=== PATIENT | female | born 1945 | race Caucasian/White ===

== ENCOUNTER 2018-02-15 17:33 | Emergency (ER) | payer MEDICARE, MEDICAID ==
[~2018-02-15] VITALS: Ht 160 cm; Wt 109.3 kg
[~2018-02-15 17:33] MED LIST: AMLO2.5T PO; ATEN25TA2 PO; CALC0.5S6 PO; CLIN300C2 PO; FOLI1TAB19 PO; LORA-476 PO; OXYC1TAB PO; VAN1PM IV; [UNRECOGNIZED DRUG - CODE] PO
[2018-02-15 17:43] VITALS: BP 114/64
[2018-02-15] MEDS: KETOROLAC 60 MG/2 ML VIAL IM ONE (19:06)
[2018-02-15 19:32] VITALS: BP 12/89
== END 2018-02-15 19:30 | disposition home or self-care (01) ==
LOC: MED 17:33
DX: B02.9 Zoster without complications (principal); B02.29 Other postherpetic nervous system involvement; I10 Essential (primary) hypertension; J45.909 Unspecified asthma, uncomplicated; M19.90 Unspecified osteoarthritis, unspecified site; I48.91 Unspecified atrial fibrillation; Z96.653 Presence of artificial knee joint, bilateral; Z79.899 Other long term (current) drug therapy; Z88.0 Allergy status to penicillin
CPT/HCPCS: 96372; 99283; J1885

== ENCOUNTER 2018-03-22 16:22 | Emergency (ER) | payer MEDICARE, MEDICAID ==
[~2018-03-22] VITALS: Ht 160 cm; Wt 108.9 kg
[2018-03-22 16:30] VITALS: BP 144/74
--- NOTE | 2018-03-22 16:32 | NUR ---
PT AMBULATED TO ED BED 9, REPORT TO MARTHA KIRKLAND
--- NOTE | 2018-03-22 16:40 | NUR ---
72F BIB SELF WITH C/O 9/10 BUTTOCK AND PERINEAL PAIN D/T "SHINGLES" X 1 WEEK. PT DENIES ANY RECENT FEVERS, N/V/D, OR CP. PT IS AOX4 TO PERSON, PLACE, SITUATION, AND TIME. RR ARE EVEN AND UNLABORED. PT CHANGED IN TO GOWN. AWAITING ER MD GARCIA. PT POSITIONED TO COMFORT. ALL NEEDS MET AT THIS TIME. WILL CONTINUE TO MONITOR.
--- NOTE | 2018-03-22 17:56 | NUR ---
PT WENT TO LOBBY TO WAIT FOR DISCHARGE
[2018-03-22 18:23] VITALS: BP 139/70
--- NOTE | 2018-03-22 18:23 | NUR ---
Patient discharged with v/s stable. Written and verbal after care instructions given and explained. Patient alert, oriented and verbalized understanding of instructions. Ambulatory with steady gait. All questions addressed prior to discharge. ID band removed. Patient advised to follow up with PMD. Rx of pERCOCET 10 given. Patient educated on indication of medication including possible reaction and side effects. Opportunity to ask questions provided and answered.
== END 2018-03-22 18:23 | disposition home or self-care (01) ==
LOC: MED 16:22
DX: B02.9 Zoster without complications (principal); J45.909 Unspecified asthma, uncomplicated; I10 Essential (primary) hypertension; F41.9 Anxiety disorder, unspecified; Z88.0 Allergy status to penicillin; Z79.1 Long term (current) use of non-steroidal anti-inflammatories (NSAID); Z79.899 Other long term (current) drug therapy
CPT/HCPCS: 99283

== ENCOUNTER 2018-09-09 11:48 | Emergency (ER) | payer MEDICAID, MEDICARE ==
[~2018-09-09] VITALS: Ht 160 cm; Wt 87.1 kg
[2018-09-09 11:50] VITALS: BP 168/85
--- NOTE | 2018-09-09 11:56 | NUR ---
PATIENT AMBULATED TO BED 7 AT THIS TIME.
--- NOTE | 2018-09-09 12:08 | NUR ---
73y/f bib self with c/o 8/10 bl lower back pain x yesterday, progressively getting worse. Patient sts she tried heating pad w/o any relief. Patient sts chronic lower back pain. Patient with steady gait with personal walker. Patient denies any recent injury or fall. pt bed down, bedrail up x 1, er md aware of notified of pt status. hx--A. Fib, RA, UTI, Hernaited Disc, HTN rx--metoprolol, diltiazem, gabapentin, fluoxetine, nitrofurantoin , zestril
[2018-09-09] MEDS ORDERED: KETOROLAC 60 MG/2 ML VIAL IM ONE (12:40)
--- NOTE | 2018-09-09 13:02 | NUR ---
notified dr. davidson pt is on xarelto, per dr. davidson, hold toradol.
[2018-09-09] MEDS ORDERED: MORPHINE SULFATE 4 MG/ML SYR IM ONE (13:25)
[2018-09-09 14:13] VITALS: BP 168/85
== END 2018-09-09 14:13 | disposition home or self-care (01) ==
LOC: MED 11:48
DX: M54.5 Low back pain (principal); R30.0 Dysuria; Z88.0 Allergy status to penicillin; J45.909 Unspecified asthma, uncomplicated; I10 Essential (primary) hypertension; Z90.49 Acquired absence of other specified parts of digestive tract; Z90.710 Acquired absence of both cervix and uterus; Z79.899 Other long term (current) drug therapy
CPT/HCPCS: 81002; 81025; 96372; 99283; J1885; J2270

== ENCOUNTER 2019-02-05 12:51 | Emergency (ER) | payer MEDICARE ==
[~2019-02-05] VITALS: Ht 160 cm; Wt 107.0 kg
[2019-02-05 12:59] VITALS: BP 166/78
--- NOTE | 2019-02-05 13:05 | NUR ---
73 Y FEMALE BIB FAMILY C/O BACK PAIN 05/19. PT AMB TO BED WITH WALKER ASSISTANCE. PT OUT OF PAIN MEDS NORCO. STATES SHE CANT SEE HER PCP UNTIL THURSDAY. STATES THE PAIN IS TOO PAINFUL TO WAIT. PT JAVI AT 55. PT [id number]. BED IS DOWN, LOCKED, BED RAIL X 1, ERMD TO SEE PT. MED HX: CHRONIC BACK PAIN
--- NOTE | 2019-02-05 14:04 | NUR ---
DR ESPANA AT BEDSIDE
[2019-02-05] MEDS ORDERED: HYDROcodone/APAP 10/325 MG 1 TAB TAB PO STA (14:19)
--- NOTE | 2019-02-05 14:26 | NUR ---
NORCO ADMINISTERED PO. PAIN 10/10 AT THIS TIME. WILL CONTINUE TO RE-EVALUATE PAIN
[2019-02-05 14:42] VITALS: BP 170/76
--- NOTE | 2019-02-05 14:42 | NUR ---
Patient discharged with v/s stable. Written and verbal after care instructions given and explained. Patient verbalized understanding. Ambulatory with walker. All questions addressed prior to discharge. Advised to follow up with PMD on Thursday for refill of her prescribed norco.
== END 2019-02-05 14:42 | disposition home or self-care (01) ==
LOC: MED 12:51
DX: G89.29 Other chronic pain (principal); M54.9 Dorsalgia, unspecified; J45.909 Unspecified asthma, uncomplicated; I10 Essential (primary) hypertension; Z88.0 Allergy status to penicillin; Z79.899 Other long term (current) drug therapy
CPT/HCPCS: 99282

== ENCOUNTER 2023-12-24 11:55 | Emergency (ER) | payer MEDICARE, OTHER ==
[~2023-12-24] VITALS: Ht 162.6 cm; Wt 108.9 kg
[2023-12-24 12:14] VITALS: BP 135/79; PULSE 97; RESP 18; TEMP 97.1; O2SAT 97
[2023-12-24] MEDS ORDERED: SULF-59 PO (14:04)
[2023-12-24 14:15] VITALS: BP 104/50; PULSE 88; RESP 20; TEMP 98.1; O2SAT 97
== END 2023-12-24 14:15 | disposition home or self-care (01) ==
LOC: MED 11:55
DX: L03.115 Cellulitis of right lower limb (principal); J45.909 Unspecified asthma, uncomplicated; I10 Essential (primary) hypertension; Z90.710 Acquired absence of both cervix and uterus; Z90.49 Acquired absence of other specified parts of digestive tract; Z98.890 Other specified postprocedural states; Z79.1 Long term (current) use of non-steroidal anti-inflammatories (NSAID); Z79.2 Long term (current) use of antibiotics; Z79.899 Other long term (current) drug therapy; Z88.0 Allergy status to penicillin
CPT/HCPCS: 93971; 99284; Q0092